=== PATIENT | male | born 1945 | race African-American/Black ===

== ENCOUNTER 2019-02-11 15:40 | Emergency (ER) | payer BC, MEDICARE ==
[~2019-02-11] VITALS: Ht 167.6 cm; Wt 83.2 kg
[2019-02-11 17:01] VITALS: BP 140/68
== END 2019-02-12 01:20 | disposition left against medical advice (07) ==
LOC: ER 15:40
DX: Z53.21 Procedure and treatment not carried out due to patient leaving prior to being seen by health care provider (principal)